=== PATIENT | female | born 1960 | race Caucasian/White ===

== ENCOUNTER → 2017-03-20 | Outpatient (CLI) | payer OTHER ==
[~2017-03-20] MED LIST: CALCIUM WITH D1 CTB PO; GLUCOSAMINE & C1 CA2 PO; MOTRIN800 MG PO
[2017-03-20 11:15] LABS: BUN 13 mg/dl (7-24); CARBON DIOXIDE 29 mmol/L (21-32); CHLORIDE 104 mmol/L (98-107); CHOLESTEROL 246 mg/dL (<200); EST GLOM FILT AFRICAN AMERICAN > 60 ml/min; GLUCOSE 101 mg/dL (65-99); POTASSIUM 4.1 mmol/L (3.5-5.1); SODIUM 142 mmol/L (136-145); TRIGLYCERIDES 85 mg/dl (<150); VLDL CHOLESTEROL 17 mg/dL (6-40)
[2017-03-20 11:16] LABS: HDL CHOLESTEROL 77 mg/dl (40-60); LDL CHOLESTEROL 152 mg/dL (9-159)
== END | disposition home or self-care (01) ==
LOC: LAB 10:23
PROVIDERS: Family Medicine
DX: Z13.220 Encounter for screening for lipoid disorders (principal); D86.9 Sarcoidosis, unspecified

== ENCOUNTER → 2017-03-23 | Outpatient (CLI) | payer OTHER | END | disposition home or self-care (01) | LOC: MAMMO 10:56 | DX: Z12.31 Encounter for screening mammogram for malignant neoplasm of breast (principal) ==

== ENCOUNTER → 2018-03-27 | Outpatient (CLI) | payer OTHER | END | disposition home or self-care (01) | LOC: MAMMO 06:44 | DX: Z12.31 Encounter for screening mammogram for malignant neoplasm of breast (principal) ==

== ENCOUNTER 2020-05-17 15:10 | Observation (INO) | payer OTHER ==
[~2020-05-17] VITALS: Ht 175.2 cm; Wt 80.3 kg
[2020-05-17 15:20] VITALS: BP 151/98
[2020-05-17 15:46] LABS: BASO # 0.1 10*3/uL (0.0-0.1); BASO % 0.5 % (0.0-1.0); EOS % 0.3 % (1.0-4.0); HEMATOCRIT 46.4 % (37.0-47.0); LYMPH # 1.7 10*3/uL (1.3-4.4); LYMPH % 18.2 % (27.0-41.0); MEAN CELL VOLUME 88.9 fl (81.0-99.0); MEAN CORPUSCULAR HGB 28.4 pg (27.0-31.0); MEAN CORPUSCULAR HGB CONC 31.9 g/dl (33.0-37.0); MEAN PLATELET VOLUME 9.7 fl (9.6-12.3); MONO # 0.8 10*3/uL (0.1-1.0); MONO % 8.1 % (3.0-9.0); NEUT # 6.9 10*3/uL (2.3-7.9); NEUT % 72.7 % (47.0-73.0); PLATELET COUNT AUTOMATED 272 10*3/uL (130-400); RED BLOOD COUNT 5.22 10*6/uL (4.10-5.10); RED CELL DISTRI WIDTH 13.2 % (0-14.5); WHITE BLOOD COUNT 9.5 10*3/uL (4.8-10.8)
[2020-05-17 16:01] LABS: ACT PARTIAL THROMBO TIME 27.9 SECONDS (20.0-32.1); ALBUMIN 3.9 gm/dl (3.1-4.5); ALKALINE PHOSPHATASE 100 U/L (45-117); BUN 21 mg/dl (7-24); CHLORIDE 109 mmol/L (98-107); CREATININE 1.15 mg/dL (0.55-1.02); INTERNATIONAL NORM RATIO 0.9 (2.0-3.5); LIPASE 116 U/L (73-393); POTASSIUM 3.8 mmol/L (3.5-5.1); SGOT/AST 23 IU/L (3-35); SGPT/ALT 21 U/L (12-78); SODIUM 138 mmol/L (136-145); TOTAL PROTEIN 7.7 gm/dL (6.4-8.2)
[2020-05-17 16:02] LABS: TROPONIN I < 0.015 ng/ml (<0.045)
[2020-05-17 16:15] VITALS: BP 141/79
[2020-05-17 17:18] VITALS: BP 142/88
--- NOTE | 2020-05-17 17:18 | NUR ---
PT DENIES ANY DIZZINESS OR HEADACHE WHILE SHE HAS BEEN HERE IN THE ER, PT HAS MAINTAINED A HR IN THE 90-LOW 100'S. NO DISTRESS NOTED, WILL CONTINUE TO MONITOR.
[2020-05-17 18:09] VITALS: BP 138/62
--- NOTE | 2020-05-17 18:20 | NUR ---
A 59, admitted to , under the services of SANDRA Keith DO with a diagnosis of PALPITATIONS, NEAR SYNCOPE, ABNORMAL EKG. Chief complaint is INCREASED HEARTRATE 170'S. Patient arrived via bed from ER. Monitor applied. Initial assessment completed. Vital signs taken and recorded. SANDRA KEITH DO notified of admission to the unit. Orders received. See assessment for past medical history, medications and allergies. Patient and/or family oriented to unit. [facility] Clothing/patient valuable form completed. MATTHEW ARREOLA
--- NOTE | 2020-05-17 19:51 | NUR ---
ASSUMED CARE OF PATIENT. PATIENT IS RESTING IN BED WITH EASY AND REGULAR RESPERS ON ROOM AIR. ASSESSMENT IS COMPLETE WITH NO S/S OF DISTRESS NOTED AT THIS TIME. PATIENT C/O HUNGER AND BOX LUNCH PROVIDED. BED IS LOW, LOCKED, AND CALL LIGHT IS WITHIN REACH. WILL CONTINUE TO MONITOR, SEE INTERVENTIONS.
[2020-05-17 20:45] VITALS: BP 151/87
[2020-05-18] VITALS: BP 142/87
[2020-05-18 06:24] LABS: BASO # 0.1 10*3/uL (0.0-0.1); EOS # 0.1 10*3/uL (0.0-0.4); HEMATOCRIT 42.1 % (37.0-47.0); LYMPH # 1.9 10*3/uL (1.3-4.4); LYMPH % 26.4 % (27.0-41.0); MEAN CORPUSCULAR HGB 28.8 pg (27.0-31.0); MEAN CORPUSCULAR HGB CONC 32.1 g/dl (33.0-37.0); MEAN PLATELET VOLUME 9.9 fl (9.6-12.3); MONO # 0.6 10*3/uL (0.1-1.0); MONO % 9.1 % (3.0-9.0); NEUT # 4.4 10*3/uL (2.3-7.9); NEUT % 62.2 % (47.0-73.0); PLATELET COUNT AUTOMATED 246 10*3/uL (130-400); RED BLOOD COUNT 4.68 10*6/uL (4.10-5.10); RED CELL DISTRI WIDTH 13.3 % (0-14.5); WHITE BLOOD COUNT 7.1 10*3/uL (4.8-10.8)
[2020-05-18 06:32] LABS: BUN 13 mg/dl (7-24); CHLORIDE 112 mmol/L (98-107); CHOLESTEROL 218 mg/dL (<200); CREATININE 0.84 mg/dL (0.55-1.02); HDL CHOLESTEROL 59 mg/dl (40-60); LDL CHOLESTEROL 144 mg/dL (9-159); SODIUM 142 mmol/L (136-145); TRIGLYCERIDES 74 mg/dl (<150); VLDL CHOLESTEROL 15 mg/dL (6-40)
[2020-05-18 08:00] VITALS: BP 136/80
[2020-05-18 08:20] LABS: VITAMIN D, 25-HYDROXY 77.1 ng/mL (30-100)
--- NOTE | 2020-05-18 09:00 | NUR ---
PATIENT AWAKE, ALERT, & ORIENTED. PT REPORTS NOT EPISODES OF DIZZINESS OR TACHYCARDIA OVERNIGHT. LUNGS CLEAR, NO SOB. VITALS STABLE. CALL LIGHT IS WITHIN REACH.
--- NOTE | 2020-05-18 09:00 | NUR ---
[employer] in to talk to patient. Patient states lives at home with boyfriend. There are no steps in the home. Physician: jani Pharmacy: mail Home health services: none Patient's level of ADLs: INDEPENDENT Patient has working utilities: all working DME: none Follow-up physician's appointment after d/c: will be made by hospitalist nurse director upon discharge Does patient want to access PORTAL?: no Discharge plan discussed with patient, she states she lives at home with her boyfriend, she is independent in adls and ambulation, drives, she states she will return home when discharged and denies any home needs, case management will follow. ANNE BERMEO
--- NOTE | 2020-05-18 11:49 | NUR ---
Discharge instructions reviewed with patient/family. Patient receptive and verbalizes understanding. Follow-up care arranged. Written instructions given to patient/family. MICHAEL DISCOTNINUED. PATIENT AMBULATORY OFF FLOOR. PICKED UP BY FAMILY MEMBER. MATTHEW ARREOLA
== END 2020-05-18 11:54 | disposition home or self-care (01) ==
LOC: ED 15:10 → EDHOLD 17:50 → 4E 18:13
PROVIDERS: Emergency Medicine; Internal Medicine; ADMIT Internal Medicine
DX: R55 Syncope and collapse (principal); R94.31 Abnormal electrocardiogram [ECG] [EKG]; D72.810 Lymphocytopenia; E87.8 Other disorders of electrolyte and fluid balance, not elsewhere classified; E11.65 Type 2 diabetes mellitus with hyperglycemia; N17.0 Acute kidney failure with tubular necrosis; E83.41 Hypermagnesemia; E86.0 Dehydration; R00.0 Tachycardia, unspecified

== ENCOUNTER → 2020-10-30 | Outpatient (CLI) | payer OTHER | END | disposition home or self-care (01) | LOC: COVID19 08:40 | PROVIDERS: ATTEND Internal Medicine | DX: Z20.828 Contact with and (suspected) exposure to other viral communicable diseases (principal) ==

== ENCOUNTER → 2021-05-31 | Outpatient (CLI) | payer OTHER ==
[2021-05-31 15:04] LABS: BASO # 0.1 10*3/uL (0.0-0.1); BASO % 0.6 % (0.0-1.0); BILIRUBIN Negative (Negative); BLOOD Negative (Negative); CLARITY Clear (Clear); COLOR Yellow (Yellow); EOS % 0.2 % (1.0-4.0); GLUCOSE Negative (Negative); HEMATOCRIT 44.8 % (37.0-47.0); KETONE Negative (Negative); LEUKO ESTERASE Negative (Negative); LYMPH % 20.5 % (27.0-41.0); MEAN CELL VOLUME 88.9 fl (81.0-99.0); MEAN CORPUSCULAR HGB 29.2 pg (27.0-31.0); MEAN CORPUSCULAR HGB CONC 32.8 g/dl (33.0-37.0); MEAN PLATELET VOLUME 9.7 fl (9.6-12.3); MONO # 0.8 10*3/uL (0.1-1.0); MONO % 8.2 % (3.0-9.0); NEUT # 6.9 10*3/uL (2.3-7.9); NEUT % 70.2 % (47.0-73.0); NITRITE Negative (Negative); PLATELET COUNT AUTOMATED 298 10*3/uL (130-400); RED BLOOD COUNT 5.04 10*6/uL (4.10-5.10); RED CELL DISTRI WIDTH 13.3 % (0-14.5); SPECIFIC GRAVITY <= 1.005 (1.001-1.030); UROBILINOGEN 0.2 E.U./dl (0.0-1.0); WHITE BLOOD COUNT 9.8 10*3/uL (4.8-10.8)
[2021-05-31 15:10] LABS: BACTERIA TRACE; EPITHELIAL CELLS 0-2; RBC 0-2 rbc/hpf (0-2); WBC 0-2 wbc/hpf (0-5)
[2021-05-31 15:43] LABS: ALBUMIN 3.8 gm/dl (3.1-4.5); ALKALINE PHOSPHATASE 100 U/L (45-117); BUN 12 mg/dl (7-24); CHLORIDE 107 mmol/L (98-107); CHOLESTEROL 238 mg/dL (<200); CREATININE 0.85 mg/dL (0.55-1.02); LDL CHOLESTEROL 146 mg/dL (9-159); POTASSIUM 3.8 mmol/L (3.5-5.1); SGOT/AST 21 IU/L (3-35); SGPT/ALT 18 U/L (12-78); SODIUM 135 mmol/L (136-145); TOTAL PROTEIN 7.7 gm/dL (6.4-8.2); TRIGLYCERIDES 154 mg/dl (<150)
== END | disposition home or self-care (01) ==
LOC: LAB 14:43
PROVIDERS: ATTEND Family Medicine
DX: I10 Essential (primary) hypertension (principal); R53.83 Other fatigue

== ENCOUNTER → 2021-06-09 | Outpatient (CLI) | payer OTHER | END | disposition home or self-care (01) | LOC: MAMMO 00:38 | PROVIDERS: ATTEND Family Medicine | DX: Z12.31 Encounter for screening mammogram for malignant neoplasm of breast (principal); N64.89 Other specified disorders of breast ==

== ENCOUNTER → 2022-05-31 | Outpatient (CLI) | payer OTHER ==
[2022-05-31 09:10] LABS: BUN 15 mg/dl (7-24); CHLORIDE 108 mmol/L (98-107); CHOLESTEROL 227 mg/dL (<200); CREATININE 0.88 mg/dL (0.55-1.02); LDL CHOLESTEROL 145 mg/dL (9-159); POTASSIUM 3.9 mmol/L (3.5-5.1); SODIUM 142 mmol/L (136-145); TRIGLYCERIDES 92 mg/dl (<150)
== END ==
LOC: LAB 08:11
PROVIDERS: ATTEND Family Medicine
DX: I10 Essential (primary) hypertension (principal)

== ENCOUNTER → 2022-07-19 | Outpatient (CLI) | payer OTHER | END | disposition home or self-care (01) | LOC: MAMMO 01:52 | PROVIDERS: ATTEND Family Medicine | DX: Z12.31 Encounter for screening mammogram for malignant neoplasm of breast (principal) ==

== ENCOUNTER → 2022-09-05 | Outpatient (CLI) | payer OTHER ==
[2022-09-05 16:14] LABS: BASO % 0.5 % (0.0-1.0); EOS % 0.1 % (1.0-4.0); HEMATOCRIT 45.7 % (37.0-47.0); LYMPH # 1.5 10*3/uL (1.3-4.4); LYMPH % 17.1 % (27.0-41.0); MEAN CELL VOLUME 90.5 fl (81.0-99.0); MEAN CORPUSCULAR HGB 29.5 pg (27.0-31.0); MEAN CORPUSCULAR HGB CONC 32.6 g/dl (33.0-37.0); MEAN PLATELET VOLUME 9.5 fl (9.6-12.3); MONO # 0.7 10*3/uL (0.1-1.0); MONO % 8.1 % (3.0-9.0); NEUT # 6.3 10*3/uL (2.3-7.9); PLATELET COUNT AUTOMATED 269 10*3/uL (130-400); RED BLOOD COUNT 5.05 10*6/uL (4.10-5.10); RED CELL DISTRI WIDTH 13.2 % (0-14.5); WHITE BLOOD COUNT 8.5 10*3/uL (4.8-10.8)
[2022-09-05 16:34] LABS: ALKALINE PHOSPHATASE 109 U/L (45-117); BUN 12 mg/dl (7-24); CHLORIDE 108 mmol/L (98-107); CREATININE 0.88 mg/dL (0.55-1.02); POTASSIUM 4.1 mmol/L (3.5-5.1); SGOT/AST 19 IU/L (3-35); SGPT/ALT 23 U/L (12-78); SODIUM 141 mmol/L (136-145); TOTAL PROTEIN 7.7 gm/dL (6.4-8.2)
== END | disposition home or self-care (01) ==
LOC: LAB 15:31
PROVIDERS: ATTEND Family Medicine
DX: I10 Essential (primary) hypertension (principal); I47.1 Supraventricular tachycardia

== ENCOUNTER → 2023-07-23 | Outpatient (CLI) | payer OTHER | END | disposition home or self-care (01) | LOC: MAMMO 11:30 | PROVIDERS: ATTEND Family Medicine | DX: Z12.31 Encounter for screening mammogram for malignant neoplasm of breast (principal) ==

== ENCOUNTER → 2024-01-03 | Outpatient (CLI) | payer OTHER ==
[2024-01-03 08:22] LABS: BUN 14 mg/dl (9-23); CHLORIDE 108 mmol/L (98-107); CHOLESTEROL 233 mg/dL (<200); LDL CHOLESTEROL 161 mg/dL (9-159); TRIGLYCERIDES 86 mg/dl (<150)
== END | disposition home or self-care (01) ==
LOC: LAB 07:11
PROVIDERS: ATTEND Family Medicine
DX: I10 Essential (primary) hypertension (principal)

== ENCOUNTER → 2024-01-14 | Outpatient (CLI) | payer OTHER | END | disposition home or self-care (01) | LOC: RAD 08:33 | PROVIDERS: ATTEND Family Medicine | DX: Z13.820 Encounter for screening for osteoporosis (principal); N95.9 Unspecified menopausal and perimenopausal disorder ==

== ENCOUNTER 2024-01-29 08:20 | Emergency (ER) | payer OTHER ==
[2024-01-29 08:29] VITALS: BP 143/73
[2024-01-29] MEDS ORDERED: Doxycycline Hyclate 100 MG CAP PO ONE (08:40)
== END 2024-01-29 09:08 | disposition home or self-care (01) ==
LOC: ED 08:20
DX: S70.362A Insect bite (nonvenomous), left thigh, initial encounter (principal); Z90.710 Acquired absence of both cervix and uterus; Z90.49 Acquired absence of other specified parts of digestive tract; Z98.890 Other specified postprocedural states; W57.XXXA Bitten or stung by nonvenomous insect and other nonvenomous arthropods, initial encounter; Y93.89 Activity, other specified; Y92.89 Other specified places as the place of occurrence of the external cause; Y99.8 Other external cause status

== ENCOUNTER → 2024-09-03 | Outpatient (CLI) | payer OTHER | END | disposition home or self-care (01) | LOC: MAMMO 12:45 | PROVIDERS: ATTEND Family Medicine | DX: N60.12 Diffuse cystic mastopathy of left breast (principal); R92.333 Mammographic heterogeneous density, bilateral breasts; R92.1 Mammographic calcification found on diagnostic imaging of breast ==